=== PATIENT | female | born 1955 | race Caucasian/White ===

== ENCOUNTER 2024-02-14 21:03 | Emergency (ER) | payer MEDICARE, OTHER, SELFPAY ==
[2024-02-14 21:05] VITALS: TEMP 36.6; BMI 17.2
--- NOTE | 2024-02-14 21:45 | ED.VIS.FALL ---
HPI HPI - Fall History of Present Illness Chief Complaint: Fall Informant: patient Occured/Mechanism Occurred: Today Narrative: Patient fell out of bed Pain/Injury Location: Occipital scalp Pain Location: head Quality of Pain: Dull Worsened by: Nothing Relieved by: Nothing Associated Symptoms Associated Symptoms: Negative for Parasthesias, Weakness, Inability to ambulate, Loss of consciousness or Amnesia Narrative Narrative: Patient presents after a fall that occurred today. Patient fell out of bed and hit the back of her head on the bed frame. Patient denies any loss of consciousness. Patient states she was having some bleeding from her occipital scalp. Patient states this has stopped. Patient denies any paresthesias or weakness. Patient states the only pain she has is in her left shoulder from a recent shoulder injection. Patient denies any neck pain or back pain. Patient denies any other injuries. PFSH PFSH Allergy/AdvReac Type Severity Reaction Status Date / Time codeine AdvReac Mild Vomiting Verified 02/14/24 21:10 Social History Smoking Status: Never smoker ROS ROS ED Constitutional Constitutional ED: Denies chills or fever(s) Eyes Eyes: Denies blurry vision or change in vision ENT ENT ED: Denies rhinorrhea or sore throat Cardiovascular Cardiovascular: Denies chest pain or palpitations Respiratory/Chest Respiratory/Chest: Denies cough or dyspnea Gastrointestinal Gastrointestinal: Denies nausea or vomiting Genitourinary Genitourinary ED: Denies dysuria or hematuria Musculoskeletal Musculoskeletal: Denies back pain or neck pain Integumentary Denies abscess or rash Neurologic Neurologic: Denies headache(s) or weakness Allergic/Immunologic Allergic/Immunologic ED: Denies mouth swelling or urticaria EXAM Physical Exam Const Vital Signs: 02/14/24 21:04 02/14/24 21:05 02/14/24 21:50 Temperature 97.9 F Temperature Source Temporal Pulse Rate 79 Respiratory Rate 18 Respiratory Effort Normal Non-Labored Respiratory Depth Normal Respiratory Pattern Normal Blood Pressure 121/81 H Blood Pressure Mean 94 Pulse Ox 97 Oxygen Delivery Method Room Air Room Air Positive well nourished and well developed General Appearance ED: well developed and NAD HEENT HEENT Narrative: There is a 1 cm full-thickness linear laceration over the occipital scalp. There is moderate gapping of the wound margins. There is no active bleeding noted. There is no bony crepitance or step-off noted. There are no foreign bodies visualized noted. Neck full ROM and supple General: Negative for tenderness Extremity Extremity Narrative: The left upper extremity is in a sling and swath. Neuro oriented x3, CN's II-XII intact bilaterally, moves all extremities, no focal motor deficits and no sensory deficits noted Kirby Coma Scale: document GCS findings Spontaneous Obeys Commands Oriented 15 Sensorium / Orientation: alert Motor Exam: strength 5/5 throughout Psych mental status grossly normal MDM MDM MDM Narrative Medical decision making narrative: Patient was given a tetanus booster. Patient is not on any anticoagulants and has a normal neurologic examination. I do not feel that there is any intra medial bleeding at this time. The wound was cleaned and anesthetized with 1% lidocaine with epinephrine. The wound was irrigated with copious amounts of normal saline. The wound was closed with 3 simple yasmani. Patient tolerated the procedure well. Patient was instructed to follow-up with her primary care physician in 5 days for wound recheck and staple removal. Patient understood and was agreeable with the plan. All questions were answered. Procedures Lacerations Occipital scalp: Length: 1 cm Depth: Sub Q Shape: Linear Prep: Sterile Conditions and Chlorhexadine Laceration repair: Irrigated, Lidocaine with epi, Local and Wound explored Irrigated (ml): 60 Number of Sutures/[place]: 3 Comment: Yasmani Discharge Plan Triage Chief Complaint: Fall Other Complaint: Laceration ED Provider: Dale Westbrook Dx/Rx/DC Orders Clinical Impression: Laceration of occipital scalp, Fall Instructions: ED Laceration Scalp Stitches or Yasmani Primary Care Provider: Jaret Parisi Print Language: Arabic Disposition Disposition: Home, Self Care
[2024-02-14 21:50] VITALS: BP 121/81; PULSE 79; RESP 18; O2SAT 97
[2024-02-14] MEDS: Diphth,Pertuss(Acell),Tet Vac 0.5 ML Vial IM (21:58)
[2024-02-14] MEDS: Lidocaine 1% /Epi 1:100 (20ml) 20 ML Vial INFILT (21:59)
--- NOTE | 2024-02-14 23:01 | ED.RN ---
REPORT CALLED TO NURSE AT THE [facility]EN[facility].
[2024-02-14 23:05] VITALS: BP 129/74; PULSE 81; RESP 18; TEMP 36.8; O2SAT 98
== END 2024-02-15 01:05 | disposition home or self-care (01) ==
PROVIDERS: Emergency Provider Emergency Medicine; PCP Family Medicine; Visit Provider Emergency Medicine
DX: S01.01XA Laceration without foreign body of scalp, initial encounter (principal); W06.XXXA Fall from bed, initial encounter; Z23 Encounter for immunization
CPT/HCPCS: 12001; 90471; 90715; 99284

== ENCOUNTER → 2024-02-19 | Outpatient (CLI) | payer MEDICARE, OTHER, SELFPAY ==
--- NOTE | 2024-02-19 16:08 | CT_ITS ---
Examination: Left shoulder CT. INDICATION: Left shoulder pain, fell a week ago. TECHNIQUE: Multiple axial images of the left shoulder were obtained without intravenous contrast administration. Reformatted sagittal and coronal images were obtained and reviewed. A radiation dose optimization technique was used for this scan. COMPARISON: None FINDINGS: There is a comminuted fracture of the proximal humeral metaphysis extending into the lateral humeral head. There is proximal and medial displacement of the distal humerus. Adjacent to the fracture there are multiple bone fragments. There is a curvilinear round radiolucency within the proximal humeral metaphysis. There is edema adjacent to the fracture. There are surgical clips within the left axilla. There are peripheral calcifications of the thoracic aorta. There is a left breast implant in place. CT/Extremity Upper without Contra IMPRESSION: Comminuted left proximal humeral fracture, cannot exclude a pathologic fracture. Electronically Signed: Samantha Garcia MD at 17:29 EDT ,
== END | disposition home or self-care (01) ==
LOC: CT 16:06
PROVIDERS: PCP Family Medicine; Referring Provider Orthopaedic Surgery; Visit Provider Orthopaedic Surgery
DX: S42.242A 4-part fracture of surgical neck of left humerus, initial encounter for closed fracture (principal); W01.198A Fall on same level from slipping, tripping and stumbling with subsequent striking against other object, initial encounter
CPT/HCPCS: 73200